=== PATIENT | female | born 1955 | race Caucasian/White ===

== ENCOUNTER 2017-10-24 19:23 | Inpatient (IN) ==
[2017-10-24] MEDS ORDERED: Isovue-370 500 ML INFUS..BTL IV ONE (19:26)
[2017-10-24] MEDS ORDERED: Ipratropium/Albuterol Neb 3 ML IH ONE (19:26)
[2017-10-24] MEDS ORDERED: *HR* Nalbuphine 10 MG/ML AMPUL IVP STA (19:39)
[2017-10-24 19:48] LABS: Basophils # 0.1 K/mcL (0.0-0.2); Basophils % 0.7 %; Eosinophils # 0.1 K/mcL (0.0-0.6); Eosinophils % 0.8 %; Hematocrit 48.7 % (35.3-44.9); Hemoglobin 15.7 g/dL (11.5-15.4); Immature Granulocytes % 0.4 % (0-4); Lymphocytes # 1.1 K/mcL (0.6-4.6); Lymphocytes % 13.5 %; Mean Corpuscular HGB Conc 32.2 g/dL (31.6-35.5); Mean Corpuscular Hemoglobin 27.1 pg (28.0-33.3); Mean Corpuscular Volume 84.1 fL (83.0-100.0); Mean Platelet Volume 10.7 fL (9.4-12.4); Monocytes # 0.6 K/mcL (0.0-1.3); Monocytes % 6.8 %; Neutrophils # 6.6 K/mcL (1.6-8.9); Platelet Count 162 K/mcL (140-400); Red Blood Count 5.79 M/mcL (3.82-4.97); Red Cell Distribution Width 13.7 % (11.5-14.5); Segmented Neutrophils % 77.8 %
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
[2017-10-24 20:08] LABS: Albumin 3.4 g/dL (3.5-5.7); Albumin/Globulin Ratio 1.1 (1.1-2.2); Bilirubin,Direct 0.2 mg/dL (0.0-0.2); Bilirubin,Indirect 0.4 mg/dL (0.0-1.2); Bilirubin,Total 0.6 mg/dL (0.3-1.0); Globulin 3.1 g/dL (2.4-3.5); Total Protein 6.5 g/dL (6.4-8.9)
[2017-10-24 20:10] LABS: BUN/Creatinine Ratio 18 (6-26); Blood Urea Nitrogen 14 mg/dL (8-23); Calcium 8.9 mg/dL (8.6-10.3); Carbon Dioxide 23 mEq/L (23-29); Chloride 102 mEq/L (98-107); Glucose 471 mg/dL (70-105); Osmolality,Calculated 303 (280-300); Potassium 3.8 mEq/L (3.5-5.1); Sodium 136 mEq/L (136-145); eGFR For African Americans > 60 (> 60); eGFR For Non-African Americans > 60 (> 60)
[2017-10-24 20:13] LABS: Troponin I 0.05 ng/mL (< 0.04)
[2017-10-24] MEDS ORDERED: *HR* Heparin 5,000 UNIT/ML VIAL IVP ONE (21:11)
[2017-10-24] MEDS ORDERED: *HR* Heparin 5,000 UNIT/ML VIAL IVP PRN ×2 (21:11)
[2017-10-24 21:19] LABS: INR 1.1; Prothrombin Time 11.3 Seconds (9.4-12.1)
[2017-10-24 21:21] LABS: Activated Partial Thrombo Time 31.8 Seconds (26.0-36.0)
[2017-10-24] MEDS: Heparin 25,000 UNIT/500 ML D5W 25,000 UNIT/500 ML BAG IVC SCH (21:37)
[2017-10-24] MEDS ORDERED: Naloxone 0.4 MG/ML INJ IVP PRN (21:40)
[2017-10-24] MEDS ORDERED: traMADol 50 MG TABLET PO PRN (21:40)
[2017-10-24] MEDS ORDERED: D5% in Water 1,000 ML IVC PRN (21:44)
[2017-10-24] MEDS ORDERED: *HR* Dextrose 50 % in Water (Syg) 50 ML SYRINGE IVP PRN (21:44)
[2017-10-24] MEDS ORDERED: Dextrose Gel 15 GM/37.5 ML TUBE PO PRN ×2 (21:44)
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
[2017-10-25] MEDS: *HR* OxyCODONE Immed Rel 5 MG TABLET PO PRN ×2 (03:09→23:59)
[2017-10-25 03:39] LABS: Basophils # 0.1 K/mcL (0.0-0.2); Basophils % 0.7 %; Eosinophils % 0.2 %; Hematocrit 46.5 % (35.3-44.9); Hemoglobin 15.2 g/dL (11.5-15.4); Immature Granulocytes % 0.2 % (0-4); Lymphocytes # 1.8 K/mcL (0.6-4.6); Lymphocytes % 22.1 %; Mean Corpuscular HGB Conc 32.7 g/dL (31.6-35.5); Mean Corpuscular Hemoglobin 27.5 pg (28.0-33.3); Mean Corpuscular Volume 84.2 fL (83.0-100.0); Mean Platelet Volume 11.1 fL (9.4-12.4); Monocytes # 0.7 K/mcL (0.0-1.3); Monocytes % 8.8 %; Neutrophils # 5.5 K/mcL (1.6-8.9); Platelet Count 172 K/mcL (140-400); Red Blood Count 5.52 M/mcL (3.82-4.97); Red Cell Distribution Width 13.7 % (11.5-14.5)
[2017-10-25 03:54] LABS: BUN/Creatinine Ratio 21 (6-26); Blood Urea Nitrogen 15 mg/dL (8-23); Calcium 8.8 mg/dL (8.6-10.3); Carbon Dioxide 24 mEq/L (23-29); Chloride 103 mEq/L (98-107); Glucose 372 mg/dL (70-105); Osmolality,Calculated 298 (280-300); Potassium 4.1 mEq/L (3.5-5.1); Sodium 136 mEq/L (136-145); eGFR For African Americans > 60 (> 60); eGFR For Non-African Americans > 60 (> 60)
[2017-10-25 04:03] LABS: Activated Partial Thrombo Time 166.2 Seconds (26.0-36.0)
[2017-10-25 04:17] LABS: Heparin anti-factor XA UFH 1.03 IU/mL (0.30-0.70)
[2017-10-25 08:28] LABS: ABG Base Excess -1 mEq/L (-2 to 3); ABG HCO3 23 mEq/L (21-27); ABG Oxygen Saturation 98 % (95-98); ABG PCO2 37 mmHg (35-45); ABG PO2 102 mmHg (85-104); ABG TCO2 24 mEq/L (20-26)
[2017-10-25] MEDS: Insulin LISPRO 300 UNITS/3 ML VIAL SQ SCH ×4 (08:41→20:32)
[2017-10-25] MEDS: Acetaminophen 325 MG TABLET PO PRN ×2 (08:46→16:20)
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
[2017-10-25] MEDS: Heparin 25,000 UNIT/500 ML D5W 25,000 UNIT/500 ML BAG IVC SCH ×2 (13:00→23:20)
[2017-10-25] MEDS ORDERED: Warfarin perPT PO PRN (18:00)
[2017-10-25] MEDS ORDERED: *HR* Warfarin 7.5 MG TABLET PO ONE (18:00)
[2017-10-25] MEDS ORDERED: Insulin DETEMIR 100 UNIT/ML X5UNITS SQ SCH (21:00)
[2017-10-26] MEDS: *HR* OxyCODONE Immed Rel 5 MG TABLET PO PRN (05:02)
[2017-10-26 05:23] LABS: Basophils % 0.7 %; Eosinophils # 0.2 K/mcL (0.0-0.6); Eosinophils % 2.5 %; Hematocrit 43.8 % (35.3-44.9); Hemoglobin 14.3 g/dL (11.5-15.4); Immature Granulocytes % 0.2 % (0-4); Lymphocytes # 1.8 K/mcL (0.6-4.6); Lymphocytes % 29.3 %; Mean Corpuscular HGB Conc 32.6 g/dL (31.6-35.5); Mean Corpuscular Hemoglobin 27.6 pg (28.0-33.3); Mean Corpuscular Volume 84.6 fL (83.0-100.0); Mean Platelet Volume 11.3 fL (9.4-12.4); Monocytes # 0.6 K/mcL (0.0-1.3); Monocytes % 9.9 %; Neutrophils # 3.4 K/mcL (1.6-8.9); Platelet Count 143 K/mcL (140-400); Red Blood Count 5.18 M/mcL (3.82-4.97); Red Cell Distribution Width 13.7 % (11.5-14.5); Segmented Neutrophils % 57.4 %
[2017-10-26 05:33] LABS: INR 1.1
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
[2017-10-26] MEDS: Insulin LISPRO 300 UNITS/3 ML VIAL SQ SCH ×4 (08:30→21:47)
[2017-10-26] MEDS ORDERED: Insulin DETEMIR 100 UNIT/ML X5UNITS SQ SCH (10:54)
[2017-10-26] MEDS ORDERED: *HR* HYDROcodone/Acet 5/325 mg TABLET PO PRN (11:23)
[2017-10-26] MEDS: *HR* Metformin 500 MG TABLET PO SCH (11:39)
[2017-10-26] MEDS: *HR* Glimepiride 2 MG TABLET PO SCH (11:39)
[2017-10-26] MEDS: Lisinopril 20 MG TABLET PO SCH (11:39)
[2017-10-26] MEDS: Methocarbamol 500 MG TABLET PO SCH ×3 (14:06→23:34)
[2017-10-26] MEDS ORDERED: *HR* Warfarin 5 MG TABLET PO SCH (18:00)
[2017-10-26] MEDS: Heparin 25,000 UNIT/500 ML D5W 25,000 UNIT/500 ML BAG IVC SCH (22:07)
[2017-10-27 04:35] LABS: Basophils # 0.1 K/mcL (0.0-0.2); Basophils % 0.8 %; Eosinophils # 0.1 K/mcL (0.0-0.6); Hematocrit 40.6 % (35.3-44.9); Hemoglobin 13.1 g/dL (11.5-15.4); Immature Granulocytes % 0.3 % (0-4); Lymphocytes # 1.9 K/mcL (0.6-4.6); Mean Corpuscular HGB Conc 32.3 g/dL (31.6-35.5); Mean Corpuscular Hemoglobin 26.8 pg (28.0-33.3); Mean Platelet Volume 11.3 fL (9.4-12.4); Monocytes # 0.7 K/mcL (0.0-1.3); Monocytes % 9.9 %; Neutrophils # 3.8 K/mcL (1.6-8.9); Platelet Count 140 K/mcL (140-400); Red Blood Count 4.89 M/mcL (3.82-4.97)
[2017-10-27 04:40] LABS: INR 1.1; Prothrombin Time 12.2 Seconds (9.4-12.1)
[2017-10-27 04:51] LABS: BUN/Creatinine Ratio 33 (6-26); Blood Urea Nitrogen 20 mg/dL (8-23); Calcium 8.5 mg/dL (8.6-10.3); Carbon Dioxide 25 mEq/L (23-29); Chloride 106 mEq/L (98-107); Glucose 147 mg/dL (70-105); Osmolality,Calculated 289 (280-300); Potassium 3.7 mEq/L (3.5-5.1); Sodium 137 mEq/L (136-145); eGFR For African Americans > 60 (> 60); eGFR For Non-African Americans > 60 (> 60)
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
[2017-10-27] MEDS ORDERED: *HR* Enoxaparin 150 MG/ML SYRINGE SQ SCH (09:00)
[2017-10-27] MEDS: Lisinopril 20 MG TABLET PO SCH (10:02)
[2017-10-27] MEDS: *HR* Glimepiride 2 MG TABLET PO SCH (10:02)
[2017-10-27] MEDS: *HR* Metformin 500 MG TABLET PO SCH (10:03)
[2017-10-27] MEDS: Methocarbamol 500 MG TABLET PO SCH (10:03)
[2017-10-27] MEDS: Insulin LISPRO 300 UNITS/3 ML VIAL SQ SCH ×2 (10:07→11:55)
[2017-10-27] MEDS: Heparin 25,000 UNIT/500 ML D5W 25,000 UNIT/500 ML BAG IVC SCH (11:51)
[2017-10-27 15:46] VITALS: BP 157/84
--- NOTE | 2017-10-28 16:33 | Electrocardiograph Report ---
[place] [id number] Test Date: 2017-10-24 Pat Name: Alicia Griffin Department: 103 Room: 2NE21 Gender: F Charge Nurse: LRLindsey : [id number] Requested By: Leonardo Guerra Order Number: [id number] Reading MD: Erlin Stone Measurements Intervals [place] Rate: 121 P: 49 WY: 174 QRS: 21 QRSD: 87 T: 95 QT: 312 QTc: 384 Interpretive Statements SINUS TACHYCARDIA WITH FREQUENT VENTRICULAR PREMATURE COMPLEXES NONSPECIFIC ST & T-WAVE ABNORMALITY Electronically Signed On 10-28-2017 16:31:59 EDT by Erlin Stone
== END 2017-10-27 18:11 | disposition home or self-care (01) | DRG 175 ==
LOC: EMEROO 19:23 → 2NENU 19:23
PROVIDERS: ADMIT Internal Medicine Cardiovascular Disease; ATTEND Internal Medicine Cardiovascular Disease

== ENCOUNTER 2019-02-05 15:36 | Observation (INO) ==
[2019-02-05] MEDS ORDERED: Ondansetron 4 MG/2 ML VIAL ONE (15:48)
[2019-02-05] MEDS ORDERED: Isovue-370 500 ML BOTTLE IVP ONE (15:56)
[2019-02-05] MEDS ORDERED: 0.9 % Sodium Chloride 1,000 ML IVC ONE (15:57)
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
[2019-02-05 16:15] LABS: Basophils # 0.1 K/mcL (0.0-0.2); Basophils % 0.9 %; Eosinophils # 0.2 K/mcL (0.0-0.6); Hematocrit 37.9 % (35.3-44.9); Immature Granulocytes % 0.3 % (0-4); Lymphocytes # 1.4 K/mcL (0.6-4.6); Lymphocytes % 21.3 %; Mean Corpuscular HGB Conc 31.7 g/dL (31.6-35.5); Mean Corpuscular Hemoglobin 25.6 pg (28.0-33.3); Mean Platelet Volume 10.7 fL (9.4-12.4); Monocytes # 0.6 K/mcL (0.0-1.3); Monocytes % 8.4 %; Neutrophils # 4.3 K/mcL (1.6-8.9); Platelet Count 253 K/mcL (140-400); Red Blood Count 4.68 M/mcL (3.82-4.97); Red Cell Distribution Width 16.7 % (11.5-14.5); Segmented Neutrophils % 66.1 %; White Blood Count 6.6 K/mcL (4.3-11.1)
[2019-02-05 16:38] LABS: Alanine Aminotransferase 15 Units/L (7-52); Albumin 3.4 g/dL (3.5-5.7); Albumin/Globulin Ratio 1.1 (1.1-2.2); Alkaline Phosphatase 90 Units/L (34-104); Aspartate Amino Transferase 14 Units/L (13-39); BUN/Creatinine Ratio 23 (6-26); Bilirubin,Direct 0.1 mg/dL (0.0-0.2); Bilirubin,Indirect 0.6 mg/dL (0.0-1.2); Bilirubin,Total 0.7 mg/dL (0.3-1.0); Blood Urea Nitrogen 24 mg/dL (8-23); Calcium 8.9 mg/dL (8.6-10.3); Carbon Dioxide 24 mEq/L (23-29); Chloride 108 mEq/L (98-107); Ethanol < 10 mg/dL (Less than 10); Globulin 3.2 g/dL (2.4-3.5); Glucose 185 mg/dL (70-105); Osmolality,Calculated 301 (280-300); Potassium 4.1 mEq/L (3.5-5.1); Sodium 141 mEq/L (136-145); Total Protein 6.6 g/dL (6.4-8.9); Troponin I 0.03 ng/mL (< 0.04); eGFR For African Americans > 60 (> 60); eGFR For Non-African Americans 53 (> 60)
[2019-02-05 16:47] LABS: INR 2.7; Prothrombin Time 30.3 Seconds (9.4-12.1)
[2019-02-05 16:49] LABS: Activated Partial Thrombo Time 49.2 Seconds (26.0-36.0)
[2019-02-05] MEDS: Ondansetron 4 MG/2 ML VIAL IVP ONE ×2 (16:49→16:50)
[2019-02-05 16:52] LABS: Thyroid Stimulating Hormone 2.945 mcIU/mL (0.340-5.600)
[2019-02-05 17:09] LABS: Bilirubin,Urine Negative (Negative); Blood,Urine Large (Negative); Clarity,Urine Clear (Clear); Color,Urine Yellow (Yellow); Glucose,Urine (UA) Normal (Normal); Ketones,Urine Negative (Negative); Leukocyte Esterase,Urine Negative (Negative); Nitrite,Urine Negative (Negative); PH,Urine 7.5 pH Units (5.0-8.0); Protein,Urine >=300 mg/dL (Neg-Trace); Specific Gravity,Urine 1.026 (1.010-1.025)
[2019-02-05 17:12] LABS: Bacteria,Urine None Seen per hpf (None-Few); Hyaline Casts,Urine None Seen per lpf (None-Few); RBC,Urine 50-100 per hpf (0-3); Squamous Epithelial Cell,Urine Many per lpf (None-Few); WBC,Urine 0-3 per hpf (0-3)
[2019-02-05 18:15] LABS: Amphetamine Screen,Urine Negative ng/mL (Cutoff=1000); Barbiturate Screen,Urine Negative ng/mL (Cutoff=200); Benzodiazepines Screen,Urine Negative ng/mL (Cutoff=200); Cannabinoid Screen,Urine Negative ng/mL (Cutoff = 50); Cocaine Screen,Urine Negative ng/mL (Cutoff= 300); Opiate Screen,Urine Negative ng/mL (Cutoff=300); Phencyclidine Screen,Urine Negative ng/mL (Cutoff=25)
[2019-02-05] MEDS ORDERED: Gadolinium Contrast Agent (WT Based) IV PRN (20:05)
[2019-02-05] MEDS ORDERED: Dextrose Gel 15 GM/37.5 ML TUBE PO PRN ×2 (20:07)
[2019-02-05] MEDS ORDERED: *HR* Dextrose 50 % in Water (Syg) 50 ML SYRINGE IVP PRN (20:07)
[2019-02-05] MEDS ORDERED: traMADol 50 MG TABLET PO PRN (20:07)
[2019-02-05] MEDS ORDERED: Acetaminophen 325 MG TABLET PO PRN (20:07)
[2019-02-05] MEDS ORDERED: Ringers Solution, Lactated 1,000 ML IVC SCH (20:15)
[2019-02-05] MEDS ORDERED: Ondansetron 4 MG/2 ML VIAL IVP PRN (20:25)
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
[2019-02-05] MEDS: Gabapentin 100 MG CAPSULE PO SCH (21:19)
[2019-02-05] MEDS: Insulin LISPRO 300 UNITS/3 ML VIAL SQ SCH (21:20)
[2019-02-05] MEDS ORDERED: Warfarin 10 MG, Warfarin 2.5 MG PO ONE (21:30)
[2019-02-05] MEDS ORDERED: *HR* Warfarin 2.5 MG TABLET ONE (21:39)
[2019-02-06 06:19] LABS: Basophils % 0.7 %; Eosinophils # 0.2 K/mcL (0.0-0.6); Eosinophils % 3.8 %; Hemoglobin 10.8 g/dL (11.5-15.4); Immature Granulocytes % 0.2 % (0-4); Lymphocytes # 1.3 K/mcL (0.6-4.6); Lymphocytes % 21.3 %; Mean Corpuscular Hemoglobin 25.4 pg (28.0-33.3); Mean Corpuscular Volume 84.7 fL (83.0-100.0); Mean Platelet Volume 10.8 fL (9.4-12.4); Monocytes # 0.6 K/mcL (0.0-1.3); Monocytes % 9.3 %; Neutrophils # 3.9 K/mcL (1.6-8.9); Platelet Count 223 K/mcL (140-400); Red Blood Count 4.25 M/mcL (3.82-4.97); Red Cell Distribution Width 16.9 % (11.5-14.5); Segmented Neutrophils % 64.7 %
[2019-02-06 06:41] LABS: INR 2.8; Prothrombin Time 31.5 Seconds (9.4-12.1)
[2019-02-06 06:42] LABS: BUN/Creatinine Ratio 20 (6-26); Blood Urea Nitrogen 20 mg/dL (8-23); Calcium 8.6 mg/dL (8.6-10.3); Carbon Dioxide 26 mEq/L (23-29); Chloride 107 mEq/L (98-107); Glucose 158 mg/dL (70-105); Osmolality,Calculated 298 (280-300); Potassium 3.9 mEq/L (3.5-5.1); Sodium 141 mEq/L (136-145); eGFR For African Americans > 60 (> 60); eGFR For Non-African Americans 56 (> 60)
[2019-02-06 06:43] LABS: Chol/HDL Ratio 6.6 (0-4.9)
[2019-02-06] MEDS: Gabapentin 100 MG CAPSULE PO SCH ×3 (07:54→21:17)
[2019-02-06] MEDS: Insulin LISPRO 300 UNITS/3 ML VIAL SQ SCH ×4 (07:54→21:17)
[2019-02-06] MEDS: Lisinopril-HCTZ 20-12.5mg TABLET PO SCH (07:54)
[2019-02-06 08:17] LABS: Estimated Average Glucose 148 mg/dl
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
--- NOTE | 2019-02-06 14:53 | Electrocardiograph Report ---
[address] [place], [place] [address] Test Date: 2019-02-05 Pat Name: Alicia Griffin Department: [id number] Room: 3B23 Gender: F Fisher Dip Net: : [id number] Requested By: Michelle Hartman Order Number: [id number] Reading MD: Andres Weber Measurements Intervals [place] Rate: 107 P: SC: QRS: 81 QRSD: 120 T: 24 QT: 353 QTc: 471 Interpretive Statements sinus tachycardia with frequent pacs w aberrancy Nonspecific intraventricular conduction delay Poor R wave progression Electronically Signed On 02-06-2019 14:51:34 EDT by Andres Weber
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
[2019-02-06] MEDS ORDERED: *HR* Warfarin 10 MG TABLET PO ONE (18:00)
[2019-02-06] MEDS ORDERED: Warfarin perPT PO PRN (18:00)
[2019-02-07 06:45] LABS: INR 2.9; Prothrombin Time 32.6 Seconds (9.4-12.1)
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
[2019-02-07] MEDS: Insulin LISPRO 300 UNITS/3 ML VIAL SQ SCH ×4 (08:49→20:17)
[2019-02-07] MEDS: Lisinopril-HCTZ 20-12.5mg TABLET PO SCH (08:49)
[2019-02-07] MEDS: Gabapentin 100 MG CAPSULE PO SCH ×3 (08:49→19:31)
[2019-02-07] MEDS ORDERED: 0.9 % Sodium Chloride 500 ML IVC ONE (10:44)
[2019-02-07] MEDS ORDERED: Lidocaine Viscous Oral Soln 15 ML SOLUTION MM PRN (10:44)
[2019-02-07] MEDS: *HR* FentaNYL (PF) 100 MCG/2 ML VIAL IVP PRN ×2 (11:20→11:25)
[2019-02-07] MEDS: *HR* Midazolam HCl 5 MG/5 ML VIAL IVP PRN ×2 (11:20→11:25)
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
[2019-02-08 03:34] LABS: Hematocrit 35.2 % (35.3-44.9); Hemoglobin 10.5 g/dL (11.5-15.4); Mean Corpuscular HGB Conc 29.8 g/dL (31.6-35.5); Mean Corpuscular Hemoglobin 24.8 pg (28.0-33.3); Mean Corpuscular Volume 83.2 fL (83.0-100.0); Mean Platelet Volume 11.5 fL (9.4-12.4); Platelet Count 228 K/mcL (140-400); Red Blood Count 4.23 M/mcL (3.82-4.97); Red Cell Distribution Width 16.5 % (11.5-14.5); White Blood Count 6.1 K/mcL (4.3-11.1)
[2019-02-08 03:44] LABS: BUN/Creatinine Ratio 22 (6-26); Blood Urea Nitrogen 24 mg/dL (8-23); Calcium 8.6 mg/dL (8.6-10.3); Carbon Dioxide 25 mEq/L (23-29); Chloride 105 mEq/L (98-107); Glucose 216 mg/dL (70-105); Osmolality,Calculated 295 (280-300); Potassium 3.7 mEq/L (3.5-5.1); Sodium 137 mEq/L (136-145); eGFR For African Americans > 60 (> 60); eGFR For Non-African Americans 51 (> 60)
[2019-02-08 03:49] LABS: INR 1.9; Prothrombin Time 21.6 Seconds (9.4-12.1)
[2019-02-08] MEDS ORDERED: Chloraseptic Spray 177 ML BOTTLE MM PRN (05:44)
[2019-02-08 07:16] VITALS: BP 170/79
[2019-02-08] MEDS: Lisinopril-HCTZ 20-12.5mg TABLET PO SCH (07:55)
[2019-02-08] MEDS: Gabapentin 100 MG CAPSULE PO SCH (07:55)
[2019-02-08] MEDS: Insulin LISPRO 300 UNITS/3 ML VIAL SQ SCH (07:55)
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
== END 2019-02-08 13:37 | disposition home or self-care (01) ==
LOC: 3BNU 15:36 → EMEROOARM 15:36 → SUATTDRO 19:33 → 3BNU 20:00
PROVIDERS: ADMIT Internal Medicine; ATTEND Family Medicine